=== PATIENT | female | born 2000 | race Asian ===

== ENCOUNTER 2019-04-22 19:45 | Emergency (ER) | payer OTHER ==
--- NOTE | 2019-04-22 20:55 | EDM.PDOC ---
ED HPI GENERAL MEDICAL PROBLEM - General Chief Complaint: Respiratory Problem Stated Complaint: CHEST PAINS/FEVER/ACHY Time Seen by Provider: 04/22/19 20:43 Source of Information: Reports: Patient History Limitations: Reports: No Limitations - History of Present Illness INITIAL COMMENTS - FREE TEXT/NARRATIVE: Ms. Gomez is a very pleasant 18-year-old woman with no chronic medical problems and no past surgical history, who now presents to the ED with a complaint of a slight, dry cough with chest soreness and a headache since 04/20/2019. She developed a subjective fever and a sore throat yesterday morning Sunday, 04/20, then dyspnea today, that is minimal at rest, and worse with exertion. No nasal congestion. No palpitations. No recent constipation, diarrhea, abdominal pain, or urinary symptoms. No recent weight gain or weight loss. No recent bloody bowel movements or black bowel movements. No recent joint aches, or rashes. No prior similar symptoms. The patient has been treating her symptoms with tea and iyhe-ybm-zwphluz ibuprofen. The patient does not have a PCP. She did not receive an influenza vaccine this season, but agreed to receive one here today. Throat Pain Score (Numeric/FACES): 7 - Related Data Allergies Allergy/AdvReac Type Severity Reaction Status Date / Time No Known Allergies Allergy Verified 04/22/19 19:55 Home Meds: Home Meds . [No Known Home Meds] 04/22/19 [History] Past Medical History - Past Health History Medical/Surgical History: Denies Medical/Surgical History Social & Family History - Tobacco Use Smoking Status *Q: Never Smoker - Alcohol Use Alcohol Use History: No - Recreational Drug Use Recreational Drug Use: No - Living Situation & Occupation Living situation: Reports: Single, Other (Dormatory) Occupation: Student ([employer]) ED ROS GENERAL - Review of Systems Review Of Systems: Comprehensive ROS is negative, except as noted in HPI. ED EXAM, GENERAL - Physical Exam Exam: See Below Exam Limited By: No Limitations General Appearance: Alert, WD/WN, No Apparent Distress Eye Exam: Bilateral Eye: EOMI, Normal Inspection Ears: Normal External Exam, Normal Canal, Hearing Grossly Normal, Normal TMs Nose: Normal Inspection, Normal Mucosa, No Blood Throat/Mouth: Normal Inspection, Normal Lips, Normal Teeth, Normal Gums, Normal Oropharynx, Normal Voice, No Airway Compromise Head: Atraumatic, Normocephalic Neck: Normal Inspection, Supple, Non-Tender, Full Range of Motion. No: Lymphadenopathy (L), Lymphadenopathy (R) Respiratory/Chest: No Respiratory Distress, Lungs Clear, Normal Breath Sounds, No Accessory Muscle Use. No: Decreased Breath Sounds, Crackles, Rhonchi, Wheezing, Stridor, Prolonged Expiration Cardiovascular: Normal Peripheral Pulses, Regular Rate, Rhythm, No Edema, No Gallop, No JVD, No Murmur, No Rub Peripheral Pulses: 4+: Radial (L), Radial (R) GI/Abdominal: Normal Bowel Sounds, Soft, Non-Tender, No Organomegaly, No Distention, No Abnormal Bruit, No Mass (Female) Exam: Deferred Rectal (Female) Exam: Deferred Back Exam: Normal Inspection, Full Range of Motion, NT Extremities: Normal Inspection, Normal Range of Motion, No Pedal Edema, Normal Capillary Refill Neurological: Alert, Oriented, Normal Cognition, No Motor/Sensory Deficits Psychiatric: Normal Affect Skin Exam: Warm, Dry, Intact, Normal Color, No Rash Course - Vital Signs Last Recorded V/S: Last Vital Signs Temp 37.8 C 04/22/19 19:57 Pulse 102 H 04/22/19 19:57 Resp 16 04/22/19 19:57 BP 143/79 H 04/22/19 19:57 Pulse Ox 98 04/22/19 19:57 - Orders/Labs/Meds Orders: Active Orders 24 hr Category Date Time Status Influenza Vaccine Charge [RC] .DISCHARGE Care 04/22/19 20:53 Active Chest 2V [CR] Stat Exams 04/22/19 20:52 Taken CULTURE STREP A CONFIRMATION [RM] Stat Lab 04/22/19 20:53 Results STREP SCRN A RAPID W CULT CONF [RM] Stat Lab 04/22/19 20:53 Results Meds: Medications Discontinued Medications Generic Name Dose Route Start Last Admin Trade Name Prabhakar PRN Reason Stop Dose Admin Influenza Virus Vaccine 1 each 04/22/19 20:53 Pharmacy To Dose - Influenza Vaccine IM 04/22/19 20:54 ONETIME ONE Influenza Virus Vaccine 60 mcg 04/22/19 21:00 Fluzone Quad Syringe IM 04/22/19 21:01 .ONCE ONE - Re-Assessments/Exams Free Text/Narrative Re-Assessment/Exam: 04/22/19 20:54 The patient was afebrile at triage, however, I agree that she feels febrile to palpation. Her physical exam is unremarkable, and her oxygen saturation is 98% , however, I have ordered a chest x-ray to exclude the even remote possibility of pneumonia. I also swabbed her throat for a rapid strep test, and will have Kitty MARTI obtain an influenza swab. Provided the chest x-ray does not demonstrate an infiltrate, I do not see the need for blood work today. 04/22/19 21:28 Two-view chest radiograph appears to be grossly normal. The cardiac silhouette is within normal limits. No pulmonary vascular congestion. No pleural effusions. No focal infiltrate. No pneumothorax. Formal read per the Radiologist pending. The patient's rapid strep test is negative. Her influenza swab is negative. 04/22/19 21:38 Test notes discussed with the patient. The patient is likely suffering from a viral illness that is probably not influenza. I explained that there are no medicines that we can give to treat a viral illness, that it will have to run its course. I advised against her taking any wycz-ngb-eizebuo cough or cold remedies, as they have been shown to be of no benefit, but do have side effects , such as an upset stomach. The patient expressed understanding. She will be given an influenza vaccine prior to discharge. Departure - Departure Time of Disposition: 21:40 Disposition: Home, Self-Care 01 Condition: Good Clinical Impression: Viral illness - Discharge Information *PRESCRIPTION DRUG MONITORING PROGRAM REVIEWED*: Not Applicable *COPY OF PRESCRIPTION DRUG MONITORING REPORT IN PATIENT KEERTHI: Not Applicable Referrals: PCP,None [Primary Care Provider] - Forms: ED Department Discharge Additional Instructions: You were seen in the emergency room for a fever, sore throat, cough with a sore chest, shortness of breath, and headache. Work-up in the ER included a rapid strep test, an influenza swab, and a chest x- ray. Your entire work-up returned negative. You do not have pneumonia. You do not have strep throat. It is still possible to have influenza despite an negative influenza test, however, in your case, it is unlikely. Based on your history, physical exam, and ER test, you are most likely suffering from a viral illness. Unfortunately, there are no medicines to get rid of a viral illness - it have to run its course. As discussed, we advise against your taking any pqmt-voh-lxrjcvn cough or cold remedies, as they have been shown to be of no benefit, but do have side effects , such as an upset stomach. As discussed, fever does not require routine treatment, but you may treat the discomfort of fever with xbwy-tol-knobrti Tylenol or ibuprofen. Stay adequately hydrated. If any other problems, please do not hesitate to return to the ER. *You were given an influenza vaccine during your ER visit.* Sepsis Event Note - Evaluation Sepsis Screening Result: Possible Sepsis Risk - Focused Exam Vital Signs: Vital Signs Temp Pulse Resp BP Pulse Ox 04/22/19 19:57 37.8 C 102 H 16 143/79 H 98 Date Exam was Performed: 04/22/19 Time Exam was Performed: 21:28 - My Orders Last 24 Hours: My Active Orders 04/22/19 20:52 Chest 2V [CR] Stat 04/22/19 20:53 Influenza Vaccine Charge [RC] .DISCHARGE CULTURE STREP A CONFIRMATION [] Stat STREP SCRN A RAPID W CULT CONF [] Stat - Assessment/Plan Last 24 Hours: My Active Orders 04/22/19 20:52 Chest 2V [CR] Stat 04/22/19 20:53 Influenza Vaccine Charge [RC] .DISCHARGE CULTURE STREP A CONFIRMATION [] Stat STREP SCRN A RAPID W CULT CONF [] Stat
[2019-04-22] MEDS ORDERED: FLU Vacc QS2019-20(6MOS+)/PF 60 MCG/0.5 ML SYRINGE IM ONE (21:00)
--- NOTE | 2019-04-23 07:52 | CR ---
Chest: PA and lateral views of the chest were obtained. Comparison: No prior chest imaging. Heart size and mediastinum are normal. Lungs are clear with no acute parenchymal change. Bony structures are unremarkable. Impression: 1. Nothing acute is identified on two-view chest x-ray. Diagnostic code #1 This report was dictated in [place] Standard Time
== END 2019-04-22 21:49 | disposition home or self-care (01) ==
LOC: JD.ED 19:45
DX: B34.9 Viral infection, unspecified (principal); Z23 Encounter for immunization
CPT/HCPCS: 71046; 71046-26; 87077; 87081; 87430; 87804; 90686; 99282; 99285-25; G0008

== ENCOUNTER 2020-05-22 12:20 | Emergency (ER) | payer OTHER ==
[2020-05-22] MEDS ORDERED: Ondansetron 4 MG/2 ML SDV IVPUSH ONE (12:49)
[2020-05-22] MEDS ORDERED: Sodium Chloride 0.9% 1,000 ML IV ONE (12:49)
[2020-05-22] MEDS ORDERED: Sodium Chloride 0.9% 10 ML Syringe FLUSH PRN (12:49)
--- NOTE | 2020-05-22 12:56 | EDM.PDOC ---
ED HPI GENERAL MEDICAL PROBLEM - General Chief Complaint: Abdominal Pain Stated Complaint: LOWER BACK/ABDOMINAL PAIN/ VOMITING/NAUSEA Time Seen by Provider: 05/22/20 12:42 Source of Information: Reports: Patient History Limitations: Reports: No Limitations - History of Present Illness INITIAL COMMENTS - FREE TEXT/NARRATIVE: 19-year-old female presents to the emergency department complaints of abdominal pain and low back pain that started yesterday. Per the patient she reports that she developed lower back pain midday yesterday which then progressed to lower abdominal pain with nausea and vomiting. Patient states that earlier in the day she had eaten a burrito bowl at [facility]. She states she has not been around anyone who has been sick that she is aware of. She denies any recent fever or chills, diarrhea, constipation, or cough. She states that shortly after she developed the abdominal pain she developed nausea and has vomited several times since. She said she did vomit throughout the night and has not even been able to keep water down. Patient states she does not believe she could be as she is taking her control pill and did have her period about 2 weeks ago. Abdomen Pain Score (Numeric/FACES): 9 - Related Data Allergies Allergy/AdvReac Type Severity Reaction Status Date / Time No Known Allergies Allergy Verified 05/22/20 12:37 Home Meds: Home Meds Ondansetron [Zofran ODT] 4 mg PO Q6H PRN #10 tab.dis 05/22/20 [Rx] norgestimate-ethinyl estradioL [Sprintec 28 Day Tablet] 1 tab PO DAILY 05/22/20 [History] Past Medical History - Past Health History Medical/Surgical History: Denies Medical/Surgical History Social & Family History - Tobacco Use Tobacco Use Status *Q: Never Tobacco User Second Hand Smoke Exposure: No - Caffeine Use Caffeine Use: Reports: Soda - Recreational Drug Use Recreational Drug Use: No - Living Situation & Occupation Living situation: Reports: Single, Other (Dormatory) Occupation: Student ([employer]) ED ROS GENERAL - Review of Systems Review Of Systems: Comprehensive ROS is negative, except as noted in HPI. ED EXAM, GI/ABD - Physical Exam Exam: See Below Exam Limited By: No Limitations General Appearance: Alert, WD/WN, No Apparent Distress Ears: Normal External Exam, Hearing Grossly Normal Nose: Normal Inspection, Normal Mucosa Throat/Mouth: Normal Inspection, Normal Lips, Normal Voice, No Airway Compromise Head: Atraumatic, Normocephalic Neck: Normal Inspection, Supple, Non-Tender, Full Range of Motion Respiratory/Chest: No Respiratory Distress, Lungs Clear, Normal Breath Sounds, No Accessory Muscle Use, Chest Non-Tender Cardiovascular: Normal Peripheral Pulses, Regular Rate, Rhythm, No Edema, No Murmur GI/Abdominal Exam: Normal Bowel Sounds, Soft, No Distention, Tender (Pubic tenderness noted bilaterally with palpation). No: Guarding (Female) Exam: Deferred Rectal (Female) Exam: Deferred Back Exam: Normal Inspection, Full Range of Motion Extremities: Normal Inspection, Normal Range of Motion, Non-Tender, No Pedal Edema, Normal Capillary Refill Neurological: Alert, Oriented, Normal Cognition Psychiatric: Normal Affect, Normal Mood Skin Exam: Warm, Dry, Intact, Normal Color, No Rash Lymphatic: No Adenopathy Course - Vital Signs Text/Narrative:: 19-year-old with nausea, vomiting, lower abdominal pain and back pain that started yesterday. I have ordered labs, urinalysis, and urine test, IV fluids as the patient has been unable to keep any food or fluid down, and nausea medication as she states she is still nauseated however she is not actively vomiting at the time of my assessment. The patient is not ill appearing however. Upon assessment she states she is still having lower back pain and abdomen is tender suprapubically. She denies any issues with voiding such as dysuria or frequency. Last Recorded V/S: Last Vital Signs Temp 97.7 F 05/22/20 12:34 Pulse 101 H 05/22/20 12:34 Resp 20 05/22/20 12:34 BP 130/83 05/22/20 12:34 Pulse Ox 96 05/22/20 12:34 - Orders/Labs/Meds Orders: Active Orders 24 hr Category Date Time Status KUB [Abdomen 1V Flat] [CR] Stat Exams 05/22/20 14:44 Ordered Sodium Chloride 0.9% [Saline Flush] Med 05/22/20 12:49 Active 10 ml FLUSH ASDIRECTED PRN Saline Lock Insert [OM.PC] Stat Oth 05/22/20 12:49 Ordered Medication Orders Sodium Chloride (Sodium Chloride 0.9% 10 Ml Syringe) 10 ml FLUSH ASDIRECTED PRN PRN Reason: Keep Vein Open Last Admin: 05/22/20 13:00 Dose: 10 ml Documented by: HUDSON Labs: Laboratory Tests 05/22/20 05/22/20 05/22/20 Range/Units 13:00 13:00 14:20 WBC 10.01 (3.98-10.04) K/mm3 RBC 5.00 (3.98-5.22) M/mm3 Hgb 14.6 (11.2-15.7) gm/dl Hct 43.6 (34.1-44.9) % MCV 87.2 (79.4-94.8) fl MCH 29.2 (25.6-32.2) pg MCHC 33.5 (32.2-35.5) g/dl RDW Std Deviation 38.7 (36.4-46.3) fL Plt Count 365 (182-369) K/mm3 MPV 9.3 L (9.4-12.3) fl Neut % (Auto) 85.0 H (34.0-71.1) % Lymph % (Auto) 7.2 L (19.3-51.7) % Richardson % (Auto) 7.3 (4.7-12.5) % Eos % (Auto) 0.2 L (0.7-5.8) Baso % (Auto) 0.1 (0.1-1.2) % Neut # (Auto) 8.51 H (1.56-6.13) K/mm3 Lymph # (Auto) 0.72 L (1.18-3.74) K/mm3 Richardson # (Auto) 0.73 H (0.24-0.36) K/mm3 Eos # (Auto) 0.02 L (0.04-0.36) K/mm3 Baso # (Auto) 0.01 (0.01-0.08) K/mm3 Manual Slide Review Abnormal smear Sodium 139 (136-145) mEq/L Potassium 4.0 (3.5-5.1) mEq/L Chloride 101 (98-107) mEq/L Carbon Dioxide 23 (21-32) mEq/L Anion Gap 19.0 H (5-15) BUN 19 H (7-18) mg/dL Creatinine 1.0 (0.55-1.02) mg/dL Est Cr Clr Drug Dosing 77.49 mL/min Estimated GFR (MDRD) > 60 (>60) mL/min BUN/Creatinine Ratio 19.0 H (14-18) Glucose 107 H (74-106) mg/dL Calcium 8.5 (8.5-10.1) mg/dL Magnesium 2.0 (1.8-2.4) mg/dl Total Bilirubin 1.3 H (0.2-1.0) mg/dL AST 20 (15-37) U/L ALT 20 (14-59) U/L Alkaline Phosphatase 61 (46-116) U/L C-Reactive Protein 12.7 H* (<1.0) mg/dL Total Protein 7.9 (6.4-8.2) g/dl Albumin 3.8 (3.4-5.0) g/dl Globulin 4.1 gm/dL Albumin/Globulin Ratio 0.9 L (1-2) Urine Color Yellow (Yellow) Urine Appearance Clear (Clear) Urine pH 5.5 (5.0-8.0) Ur Specific Rice > or = 1.030 (1.005-1.030) Urine Protein 1+ H (Negative) Urine Glucose (UA) Negative (Negative) Urine Ketones 3+ H (Negative) Urine Occult Blood Negative (Negative) Urine Nitrite Negative (Negative) Urine Bilirubin 1+ H (Negative) Urine Urobilinogen 0.2 (0.2-1.0) Ur Leukocyte Esterase Negative (Negative) Urine RBC 0-5 (0-5) /hpf Urine WBC 0-5 (0-5) /hpf Ur Epithelial Cells 5-10 H (0-5) /hpf Ur Transition Epith Cell 0-5 (0-5) Ur Renal Epithelial Cell 0-5 (0-5) /hpf Urine Bacteria Moderate H (FEW) /hpf Urine Mucus Many H (FEW) /hpf Urine HCG, Qual (NEGATIVE) 05/22/20 Range/Units 14:20 WBC (3.98-10.04) K/mm3 RBC (3.98-5.22) M/mm3 Hgb (11.2-15.7) gm/dl Hct (34.1-44.9) % MCV (79.4-94.8) fl MCH (25.6-32.2) pg MCHC (32.2-35.5) g/dl RDW Std Deviation (36.4-46.3) fL Plt Count (182-369) K/mm3 MPV (9.4-12.3) fl Neut % (Auto) (34.0-71.1) % Lymph % (Auto) (19.3-51.7) % Richardson % (Auto) (4.7-12.5) % Eos % (Auto) (0.7-5.8) Baso % (Auto) (0.1-1.2) % Neut # (Auto) (1.56-6.13) K/mm3 Lymph # (Auto) (1.18-3.74) K/mm3 Richardson # (Auto) (0.24-0.36) K/mm3 Eos # (Auto) (0.04-0.36) K/mm3 Baso # (Auto) (0.01-0.08) K/mm3 Manual Slide Review Sodium (136-145) mEq/L Potassium (3.5-5.1) mEq/L Chloride (98-107) mEq/L Carbon Dioxide (21-32) mEq/L Anion Gap (5-15) BUN (7-18) mg/dL Creatinine (0.55-1.02) mg/dL Est Cr Clr Drug Dosing mL/min Estimated GFR (MDRD) (>60) mL/min BUN/Creatinine Ratio (14-18) Glucose (74-106) mg/dL Calcium (8.5-10.1) mg/dL Magnesium (1.8-2.4) mg/dl Total Bilirubin (0.2-1.0) mg/dL AST (15-37) U/L ALT (14-59) U/L Alkaline Phosphatase (46-116) U/L C-Reactive Protein (<1.0) mg/dL Total Protein (6.4-8.2) g/dl Albumin (3.4-5.0) g/dl Globulin gm/dL Albumin/Globulin Ratio (1-2) Urine Color (Yellow) Urine Appearance (Clear) Urine pH (5.0-8.0) Ur Specific Rice (1.005-1.030) Urine Protein (Negative) Urine Glucose (UA) (Negative) Urine Ketones (Negative) Urine Occult Blood (Negative) Urine Nitrite (Negative) Urine Bilirubin (Negative) Urine Urobilinogen (0.2-1.0) Ur Leukocyte Esterase (Negative) Urine RBC (0-5) /hpf Urine WBC (0-5) /hpf Ur Epithelial Cells (0-5) /hpf Ur Transition Epith Cell (0-5) Ur Renal Epithelial Cell (0-5) /hpf Urine Bacteria (FEW) /hpf Urine Mucus (FEW) /hpf Urine HCG, Qual Negative (NEGATIVE) Meds: Medications Generic Name Dose Route Start Last Admin Trade Name Freq PRN Reason Stop Dose Admin Sodium Chloride 10 ml 05/22/20 12:49 05/22/20 13:00 Sodium Chloride 0.9% 10 Ml Syringe FLUSH 10 ml ASDIRECTED PRN Administration Keep Vein Open Discontinued Medications Generic Name Dose Route Start Last Admin Trade Name Freq PRN Reason Stop Dose Admin Sodium Chloride 1,000 mls @ 999 mls/hr 05/22/20 12:49 05/22/20 13:00 Normal Saline IV 05/22/20 13:49 999 mls/hr ONETIME ONE Administration Ketorolac Tromethamine 30 mg 05/22/20 15:03 05/22/20 15:32 Ketorolac 30 Mg/Ml Sdv IVPUSH 05/22/20 15:04 30 mg ONETIME ONE Administration Ondansetron HCl 4 mg 05/22/20 12:49 05/22/20 13:00 Ondansetron 4 Mg/2 Ml Sdv IVPUSH 05/22/20 12:50 4 mg ONETIME ONE Administration - Re-Assessments/Exams Free Text/Narrative Re-Assessment/Exam: 05/22/20 15:54 Abdominal x ray reviewed with Dr. Puckett: nothing acute is appreciated. No dilated bowel is appreciated. 05/22/20 15:56 Hematology reveals a WBC of 10.01, hemoglobin 14.6, hematocrit 43.6 chemistry reveals a sodium of 139, potassium 4.0, anion gap 19.0, BUN 19, creatinine 1.0, glucose 107, total bilirubin 1.3, AST 20, ALT 20, magnesium 2.0, C-reactive protein 12.7 Urinalysis shows 1+ protein, 3+ ketones, 1+ bilirubin, leuk esterase is negative, nitrite negative urine hCG negative Patient states she is feeling better after receiving a liter of IV fluids, Zofran for nausea and Toradol for abdominal pain. She states she is ready to go home. I will send her home with a prescription for Zofran as needed. Departure - Departure Time of Disposition: 15:56 Disposition: Home, Self-Care 01 Condition: Good Clinical Impression: Gastroenteritis - Discharge Information Prescriptions: Ondansetron [Zofran ODT] 4 mg PO Q6H PRN #10 tab.dis PRN Reason: Nausea/Vomiting Instructions: Viral Gastroenteritis, Adult, [id number] Referrals: PCP,None [Primary Care Provider] - Forms: ED Department Discharge Additional Instructions: You were seen in the emergency department today with complaints of nausea, vomiting and abdominal pain. Labs and an x-ray were completed and these were unremarkable. You were also given a liter of IV fluids, nausea medication and pain medication and you stated you felt better after this. It is likely you have gastroenteritis as this has been going around. Recommend you drink clear liquids for the next 24 hours and then advance to a bland diet as tolerated. I sent prescription to your pharmacy for Zofran. You may take this tab every 6 hours as needed for nausea and vomiting. Allow it dissolve to dissolve under your tongue and the wait approximately 30 minutes before eating or drinking. Should your condition worsen or change return to the emergency department. Sepsis Event Note (ED) - Evaluation Sepsis Screening Result: No Definite Risk - Focused Exam Vital Signs: Vital Signs Temp Pulse Resp BP Pulse Ox 05/22/20 12:34 97.7 F 101 H 20 130/83 96 - My Orders Last 24 Hours: My Active Orders 05/22/20 12:49 Sodium Chloride 0.9% [Saline Flush] 10 ml FLUSH ASDIRECTED PRN Saline Lock Insert [OM.PC] Stat 05/22/20 14:44 KUB [Abdomen 1V Flat] [CR] Stat - Assessment/Plan Last 24 Hours: My Active Orders 05/22/20 12:49 Sodium Chloride 0.9% [Saline Flush] 10 ml FLUSH ASDIRECTED PRN Saline Lock Insert [OM.PC] Stat 05/22/20 14:44 KUB [Abdomen 1V Flat] [CR] Stat
[2020-05-22] MEDS ORDERED: Ketorolac 30 MG/ML SDV IVPUSH ONE (15:03)
--- NOTE | 2020-05-24 10:29 | CR ---
Abdomen: Supine view of the abdomen was obtained. Comparison: No prior abdominal x-ray is available. Bowel gas pattern is normal. No abnormal calcifications or soft tissue abnormality is appreciated. No osseous abnormality is appreciated. Impression: 1. Nothing acute is seen on supine abdominal x-ray. Diagnostic code #1
== END 2020-05-22 16:05 | disposition home or self-care (01) ==
LOC: JD.ED 12:20
DX: K52.9 Noninfective gastroenteritis and colitis, unspecified (principal); Z79.899 Other long term (current) drug therapy
CPT/HCPCS: 36415; 74018; 80053; 81001; 81025; 83735; 85025; 86140; 96374; 96375; 99284; J1885; J2405; J7030; 99283